=== PATIENT | female | born 1985 | race Caucasian/White ===

== ENCOUNTER 2016-05-19 10:51 | Emergency (ER) | payer OTHER ==
[~2016-05-19] VITALS: Ht 162.6 cm; Wt 81.1 kg
[~2016-05-19 10:51] MED LIST: DIFLUCAN150 MG PO; ERYTHROMYC1 APPLICAT RIGHT EYE; KEFLEX500 MG PO; MEDROL DOSEPAK4 MG PO; MOXEZA3 ML BOTH EYES; NAPROSYN500 MG PO; NOHOMEMEDS; NORCO 5/3251 TABLET PO; ORTHO CYCLEN1 TABLET PO; ORTHO TRI-CY1 TABLET PO; PEN-VEE K,VEET500 MG PO; VALIUM5 MG PO; ZOFRAN4 MG PO
[2016-05-19] MEDS ORDERED: MOTRIN800 MG PO (12:20)
[2016-05-19] MEDS ORDERED: POLYTRIM EYE DR10 ML RIGHT EYE (12:20)
[2016-05-19 12:46] VITALS: BP 114/81
== END 2016-05-19 12:46 | disposition home or self-care (01) ==
LOC: EME 10:51
DX: S05.01XA Injury of conjunctiva and corneal abrasion without foreign body, right eye, initial encounter (principal); Y93.E8 Activity, other personal hygiene
CPT/HCPCS: 99281; 99284